=== PATIENT | female | born 1990 | race Two or more races ===

== ENCOUNTER 2022-03-19 19:55 | Inpatient (IN) | payer OTHER ==
[~2022-03-19] VITALS: Ht 154.9 cm; Wt 47.6 kg
[~2022-03-19 19:55] MED LIST: CITALOPRAM20 MG/10 M
== END 2022-03-22 20:50 | disposition home or self-care (01) | DRG 866 ==
LOC: ER 19:55 → MEDJ 03-20 10:30 → MEDI 03-21 11:16
PROVIDERS: ADMIT Internal Medicine; ATTEND Internal Medicine
DX: A90 Dengue fever [classical dengue] (principal); E86.0 Dehydration; K29.60 Other gastritis without bleeding; Z20.822 Contact with and (suspected) exposure to COVID-19; D69.6 Thrombocytopenia, unspecified; F32.A Depression, unspecified; F41.9 Anxiety disorder, unspecified